=== PATIENT | female | born 1965 | race Caucasian/White ===

== ENCOUNTER 2019-01-21 13:32 | Emergency (ER) | payer OTHER ==
[~2019-01-21] VITALS: Ht 162.6 cm; Wt 54.4 kg
[2019-01-21] MEDS ORDERED: CLARITIN10 MG PO (13:42)
[2019-01-21] MEDS ORDERED: PREDNISONE 20 M20 MG PO (15:05)
[2019-01-21 15:21] VITALS: BP 142/82
== END 2019-01-21 15:22 | disposition home or self-care (01) ==
LOC: M.ERS 13:32
DX: R22.0 Localized swelling, mass and lump, head (principal); R51 Headache; J34.89 Other specified disorders of nose and nasal sinuses; Z88.1 Allergy status to other antibiotic agents; Z88.5 Allergy status to narcotic agent; Z98.890 Other specified postprocedural states; Z88.8 Allergy status to other drugs, medicaments and biological substances